=== PATIENT | male | born 1960 | race Caucasian/White ===

== ENCOUNTER → 2020-06-10 | Outpatient (CLI) | payer OTHER ==
--- NOTE | 2020-06-10 12:15 | RAD ---
Study: XR SHOULDER_LEFT 2+ VIEWS Indication: Shoulder pain. Comparison: None. Findings: Apparent narrowing of the acromiohumeral interval on the scapular Y view is favored in part artifactu al from cephalad beam angulation given relatively mild narrowing of the interval on the AP external r otation view. Moderate glenohumeral joint arthrosis with humeral head more so than glenoid osteophyti c ridging. Degenerative changes at the greater tuberosity. Mild/moderate AC joint arthrosis. No acute fracture. Left chest wall pacer. Impression: 1. Moderate glenohumeral and mild/moderate AC joint arthrosis. 2. Mild narrowing of the acromiohumeral interval. As deemed necessary MRI would better assess rotator cuff integrity. Electronically signed by: EITAN MARIA MD (06/10/2020 12:13 PM) [id number]
--- NOTE | 2020-06-10 12:17 | RAD ---
Study: XR KNEE_RT 1-2 VIEWS Indication: Right knee pain. Status post knee arthroplasty. Comparison: None. Findings: Status post total right knee arthroplasty. The hardware is intact and well fixated. No periprosthetic fracture. The resurfaced patella is not fully evaluated on the lateral view due to the degree of kne e flexion. Chronic remodeling and ossific fragments along the femorotibial joint line. Impression: Intact and well fixated total knee arthroplasty construct. No periprosthetic fracture. Electronically signed by: EITAN MARIA MD (06/10/2020 12:15 PM) [id number]
== END ==
LOC: DXRAD 08:53
PROVIDERS: ATTEND Family Medicine
DX: M19.012 Primary osteoarthritis, left shoulder (principal); M25.561 Pain in right knee
CPT/HCPCS: 73030; 73560